=== PATIENT | female | born 1950 | race Caucasian/White ===

== ENCOUNTER → 2016-09-25 | Outpatient (CLI) | payer OTHER ==
[~2016-09-25] MED LIST: ACIPHEX20 MG PO; AMLODIPINE BESYL5 MG PO; CARDIZEM PO; CREON DR 24,001 EACH PO; HYDROCODON-ACE1 EAC5 PO; K-TAB ER20 MEQ PO; LINZESS145 MCG PO; MAGNESIUM400 MG PO; NASONEX17 GM; ONDANSETRON ODT8 MG PO; PANTOPRAZOLE SO40 MG PO; PHENERGAN PO; PRAVACHOL PO; PRAVACHOL80 MG PO; SERTRALINE HCL100 M1 PO; TRAZODONE HCL100 MG PO; VITAMIN B125000 MCG PO; ZANTAC PO
[2016-09-25 14:15] LABS: ALBUMIN SERUM 4.3 g/dL (3.5-5.0); BILIRUBIN,TOTAL 0.4 mg/dL (0.2-2.0); CALCIUM SERUM 9.1 mg/dL (8.4-10.2); CREATININE SERUM 0.6 mg/dL (0.6-1.4); GLOM FILT RATE Estimated 93.7 mL/min (>60); POTASSIUM 3.7 mmol/L (3.5-5.1); PROTEIN TOTAL SERUM 7.1 g/dL (6.0-8.3)
== END | disposition home or self-care (01) ==
LOC: SLAB 13:30
PROVIDERS: Nurse Practitioner Adult Health
DX: K86.1 Other chronic pancreatitis (principal); K86.81 Exocrine pancreatic insufficiency; R74.8 Abnormal levels of other serum enzymes
CPT/HCPCS: 36415; 80053; 86301

== ENCOUNTER → 2016-10-03 | Outpatient (CLI) | payer OTHER ==
--- NOTE | ~2016-10-03 | BD1 ---
[facility] A Service of [facility] & [facility] RADIOLOGY TEXT RESULTS PATIENT: BRYAN OSCAR LOCATION: [facility] : 46 UNIT #: [id number] AGE: [address]: Adilene Montaño MD SEX: F ORDER DR: [id number] [place] [id number] [facility]. [place], [place] [address] [id number] O MR#: [id number] Acc #: [id number] NAME: BRYAN OSCAR. : 1950 SEX: F STUDY DATE/TIME: 10/03/2016 12:05 UNIT: [facility] ROOM: STUDY DESCRIPTION: BD Dexa Bone Dens 1+ Site Attending Physician: Adilene Montaño M.D. Referring Physician: Adilene Montaño M.D. Ordering Physician: Adilene Montaño M.D. Primary Care Physician: Adilene Montaño M.D. MEDICAL IMAGING REPORT This report is preliminary unless electronic signature is present EXAM DXA study lumbar in one site, left hip INDICATION This is a 66-year-old female patient postmenopausal with height, 5 feet 3 inches weight 130. History of chronic pancreatitis. TECHNIQUE DXA study performed lumbar spine and left hip on a Hologic system. FINDINGS Total bone mineral density L1-L4 is 1.013 g/cm2 with a T-score of -0.3. This is minus 4.1% from baseline study of 04/25/2011. This is a 0.9% negative changed from most recent study of 09/25/2014. This is not statistically significant. The total bone mineral density measured of the left hip is 0.739 with a T-score of -1.7. Total bone mineral density at the left femoral neck is 0.581 with a T-score of -2.4. Changed from previous is minus 4.3%. Change from baseline is minus 11.4%. This patient has increased fracture risk and by WHO classification has osteopenia. IMPRESSION By WHO classification, this patient has osteopenia with increased fracture risk. There is worsening osteopenia on comparison to baseline with measurements provided above. Dictated by... [facility] A Service of [facility] & [facility] RADIOLOGY TEXT RESULTS PATIENT: BRYAN OSCAR LOCATION: [facility] : 48 UNIT #: [id number] AGE: [address]: Adilene Montaño MD SEX: F ORDER DR: Mya Stratton M.D. THIS IS AN ELECTRONICALLY VERIFIED REPORT Mya Stratton M.D. at 10/05/2016 7:29 AM Alicia TD: 10/04/2016 22:54 JOB #: [id number] MEDICAL IMAGING REPORT Page 1 of 1 COPY
== END | disposition home or self-care (01) ==
LOC: CWCC 09-23 12:00
DX: M85.80 Other specified disorders of bone density and structure, unspecified site (principal); M89.9 Disorder of bone, unspecified
CPT/HCPCS: 77080

== ENCOUNTER → 2016-10-24 | Outpatient (CLI) | payer OTHER ==
[2016-10-24 11:49] LABS: ALBUMIN SERUM 4.6 g/dL (3.5-5.0); BILIRUBIN,TOTAL 0.6 mg/dL (0.2-2.0); CALCIUM SERUM 9.7 mg/dL (8.4-10.2); CREATININE SERUM 0.5 mg/dL (0.6-1.4); GLOM FILT RATE Estimated 99.5 mL/min (>60); POTASSIUM 3.5 mmol/L (3.5-5.1); PROTEIN TOTAL SERUM 7.2 g/dL (6.0-8.3)
== END | disposition home or self-care (01) ==
LOC: CSSDAY 10:00
PROVIDERS: Family Medicine
DX: M85.80 Other specified disorders of bone density and structure, unspecified site (principal)
CPT/HCPCS: 80053; 96365; J3489

== ENCOUNTER 2016-10-28 21:37 | Emergency (ER) | payer OTHER ==
[~2016-10-28] VITALS: Ht 160 cm; Wt 60.3 kg
--- NOTE | ~2016-10-28 | CR281 ---
[facility]. [facility] A Service of [facility] RADIOLOGY TEXT RESULTS PATIENT: BRYAN OSCAR LOCATION: [facility] : 48 UNIT #: [id number] AGE: [address]: Obed Booth MD SEX: F ORDER DR: [id number] [place] [address] [id number] E MR#: [id number] Acc #: [id number] NAME: BYRAN OSCAR : 1950 SEX: F STUDY DATE/TIME: 10/28/2016 23:31 UNIT: [facility] ROOM: STUDY DESCRIPTION: CR Wrist Min 3 View Lt Attending Physician: Obed Booth M.D. Ordering Physician: Obed Booth M.D. Primary Care Physician: Adilene Montaño M.D. MEDICAL IMAGING REPORT This report is preliminary unless electronic signature is present. EXAM Three-views left wrist DATE: 10/28/2016 HISTORY Left hand and wrist pain earlier this morning. No known trauma. COMPARISON None. FINDINGS: No fracture. No dislocation. Mild degenerative narrowing of the radiographic contrast material joint. No osteolytic or osteoblastic abnormalities. IMPRESSION Mild degenerative narrowing of the radiocarpal joint. No acute abnormality of the left wrist. Dictated by... Elissa Kapoor M.D. THIS IS AN ELECTRONICALLY VERIFIED REPORT Elissa Kapoor M.D. at 10/29/2016 9:57 PM Kanwal/bee TD: 10/29/2016 02:22 JOB #: [id number] [facility] A Service of [facility] RADIOLOGY TEXT RESULTS PATIENT: BRYAN OSCAR LOCATION: [facility] : 46 UNIT #: [id number] AGE: [address]: Obed Booth MD SEX: F ORDER DR: MEDICAL IMAGING REPORT Page 1 of 1
== END 2016-10-29 00:19 | disposition home or self-care (01) ==
LOC: SED 21:37
DX: M19.032 Primary osteoarthritis, left wrist (principal); Z79.899 Other long term (current) drug therapy; Z88.5 Allergy status to narcotic agent; Z88.8 Allergy status to other drugs, medicaments and biological substances
CPT/HCPCS: 29125; 73110; 99283

== ENCOUNTER → 2016-11-04 | Outpatient (CLI) | payer OTHER ==
--- NOTE | ~2016-11-04 | MR112 ---
[facility] A Service of [facility] & [facility] RADIOLOGY TEXT RESULTS PATIENT: BRYAN OSCAR LOCATION: [facility] : 48 UNIT #: [id number] AGE: [address]: Mynor Kennedy II, MD SEX: F ORDER DR: [id number] [place] [id number] O MR#: [id number] Acc #: [id number] NAME: BRYAN OSCAR. : 1950 SEX: F STUDY DATE/TIME: 11/04/2016 11:34 UNIT: [facility] ROOM: STUDY DESCRIPTION: MR Lumbar WWo Contrast Attending Physician: Mynor Kennedy II., M.D. Referring Physician: Mynor Kennedy II., M.D. Ordering Physician: Mynor Kennedy II., M.D. Primary Care Physician: Adilene Montaño M.D. MRI CENTER REPORT This report is preliminary unless electronic signature is present. EXAM MRI of the lumbar spine with and without contrast dated 11/04/[address] abdomen pelvis with contrast dated 02/17/2013. HISTORY Increased low back pain and hip pain for a month. FINDINGS Multisequence, multiplanar imaging of the lumbar spine was obtained with and without contrast. GFR measured greater than 60. 12 mL of MultiHance was administered intravenously. Vertebral body heights and alignment are preserved. Degenerative disc disease is at multiple levels, worse at L4-5 and L5-S1. Conus terminates at L1. Signal of conus and cauda equina are within normal limits. Pre and paravertebral soft tissues do not demonstrate any significant abnormality. L1-2, L2-3: Minimal bilateral facet change but otherwise unremarkable. L3-4: Concentric disc bulge with mild inferior bilateral neural foraminal narrowing and borderline size to mild canal stenosis. L4-5: Concentric disc bulge with central annular fissure. Borderline size to mild canal stenosis and mild inferior bilateral neural foraminal narrowing. Mild bilateral lateral recess encroachment is seen. L5-S1: Concentric disc bulge with superimposed central protrusion and mild inferior bilateral neural foraminal narrowing. IMPRESSION 1. Mild degenerative disc disease is seen at L4-5 and L5-S1 followed by [facility] A Service of [facility] & [facility] RADIOLOGY TEXT RESULTS PATIENT: BRYAN OSCAR LOCATION: [facility] : 48 UNIT #: [id number] AGE: [address]: Mynor Kennedy II, MD SEX: F ORDER DR: L3-4 as described above. 2. No enhancing lesions. Dictated by... Ricardo Monte M.D. THIS IS AN ELECTRONICALLY VERIFIED REPORT Ricardo Monte M.D. at 11/10/2016 4:08 PM CPR/rnr TD: 11/05/2016 18:27 JOB #: [id number] MRI CENTER REPORT Page 1 of 1
--- NOTE | ~2016-11-04 | MR31 ---
[facility]. [facility] A Service of [facility] & [facility] RADIOLOGY TEXT RESULTS PATIENT: BRYAN OSCAR LOCATION: [facility] : 48 UNIT #: [id number] AGE: [address]: Mynor Kennedy II, MD SEX: F ORDER DR: [id number] [place] [id number] O MR#: [id number] Acc #: [id number] NAME: BRYAN OSCAR : 1950 SEX: F STUDY DATE/TIME: 11/04/2016 10:57 UNIT: [facility] ROOM: STUDY DESCRIPTION: MR Cervical WWo Contrast Attending Physician: Mynor Kennedy II., M.D. Referring Physician: Mynor Kennedy II., M.D. Ordering Physician: Mynor Kennedy II., M.D. Primary Care Physician: Adilene Montaño M.D. MRI CENTER REPORT This report is preliminary unless electronic signature is present. EXAM MRI of the cervical spine with and without contrast dated 11/04/2016 COMPARISON None. HISTORY Increasing neck pain with bilateral arm pain for 1 month. FINDINGS Multisequence, multiplanar imaging of the cervical spine was obtained with and without contrast. GFR measured greater than 60. 12 mL of MultiHance was administered intravenously. Status post anterior cervical fusion at C5-6 with hardware. Degenerative disc disease is seen above and below the level of fusion. Cord demonstrates normal expected course caliber and signal. Motion artifact noted in multiple sequences limiting evaluation. Post-contrast sequences do not demonstrate enhancing cord lesions. C2-3: Mild disc bulge with no canal stenosis or neural foraminal narrowing. C3-4: Concentric disc bulge with mild to moderate bilateral facet changes. No significant canal stenosis or neural foraminal narrowing. C4-5: Concentric disc bulge with no canal stenosis or neural foraminal narrowing. Small amount of joint fluid is noted in the left facet joint. C5-6: Postoperative changes are noted without canal stenosis or neural foraminal narrowing. C6-7: Concentric disc bulge without canal stenosis or neural foraminal narrowing. [facility] A Service of [facility] RADIOLOGY TEXT RESULTS PATIENT: BRYAN OSCAR LOCATION: [facility] : 46 UNIT #: [id number] AGE: [address]: Mynor Kennedy II, MD SEX: F ORDER DR: C7-T1: Mild degenerative disc signal loss but otherwise unremarkable. IMPRESSION 1. Status post anterior cervical fusion at C5-6 with presence of hardware. 2. Mild degenerative changes are noted in the disc and facet joints as described above without any significant canal stenosis, cord compression or cord signal change. 3. Post-contrast imaging does not demonstrate any significant enhancing lesions. Dictated by... Ricardo Monte M.D. THIS IS AN ELECTRONICALLY VERIFIED REPORT Ricardo Monte M.D. at 11/18/2016 4:41 PM CPR/rnr TD: 11/05/2016 18:09 JOB #: [id number] MRI CENTER REPORT Page 1 of 1
[2016-11-04 16:05] LABS: POC - CREATININE 0.74 mg/dL (0.44-1.03); POC - GFR >60.0 mL/min (>60)
== END | disposition home or self-care (01) ==
LOC: SMRI 10:27
PROVIDERS: Psychiatry & Neurology Neurology
DX: M47.22 Other spondylosis with radiculopathy, cervical region (principal); M54.12 Radiculopathy, cervical region; M51.16 Intervertebral disc disorders with radiculopathy, lumbar region; M51.17 Intervertebral disc disorders with radiculopathy, lumbosacral region; Z98.1 Arthrodesis status
CPT/HCPCS: 72156; 72158; 82565; A9581